=== PATIENT | female | born 1980 | race Two or more races ===

== ENCOUNTER 2019-02-10 12:00 | Outpatient (CLI) | payer BC | END 2019-02-10 23:59 | disposition home or self-care (01) | LOC: WOU 12:00 | PROVIDERS: ATTEND Surgery | DX: Z48.89 Encounter for other specified surgical aftercare (principal); N64.4 Mastodynia; Z80.3 Family history of malignant neoplasm of breast; L03.313 Cellulitis of chest wall | CPT/HCPCS: 99205; A6407; G0463 ==

== ENCOUNTER 2019-02-17 12:00 | Outpatient (CLI) | payer BC | END 2019-02-17 23:59 | disposition home or self-care (01) | LOC: WOU 12:00 | PROVIDERS: ATTEND Surgery | DX: Z48.817 Encounter for surgical aftercare following surgery on the skin and subcutaneous tissue (principal); N64.4 Mastodynia; L03.313 Cellulitis of chest wall; Z80.3 Family history of malignant neoplasm of breast | CPT/HCPCS: 99214; A6407; G0463 ==

== ENCOUNTER 2019-02-24 12:20 | Outpatient (CLI) | payer BC | END 2019-02-24 23:59 | disposition home or self-care (01) | LOC: WOU 12:20 | PROVIDERS: ATTEND Surgery | DX: Z48.817 Encounter for surgical aftercare following surgery on the skin and subcutaneous tissue (principal); N64.4 Mastodynia; L03.313 Cellulitis of chest wall; Z80.3 Family history of malignant neoplasm of breast; Z83.3 Family history of diabetes mellitus | CPT/HCPCS: 99214; A6407; G0463 ==

== ENCOUNTER 2019-03-10 12:00 | Outpatient (CLI) | payer BC | END 2019-03-10 23:59 | disposition home or self-care (01) | LOC: WOU 12:00 | PROVIDERS: ATTEND Surgery | PROC: BH41ZZZ Ultrasonography of Left Breast (ICD-10-PCS; principal; 2019-03-10) | PROC: 0H9U3ZX Drainage of Left Breast, Percutaneous Approach, Diagnostic (ICD-10-PCS; principal; 2019-03-10) | DX: N61.1 Abscess of the breast and nipple (principal); Z80.3 Family history of malignant neoplasm of breast; L03.313 Cellulitis of chest wall; N64.4 Mastodynia | CPT/HCPCS: 87070-TC ==

== ENCOUNTER 2019-03-17 12:05 | Outpatient (CLI) | payer BC | END 2019-03-17 23:59 | disposition home or self-care (01) | LOC: WOU 12:05 | PROVIDERS: ATTEND Surgery | DX: N61.1 Abscess of the breast and nipple (principal); L03.313 Cellulitis of chest wall; N64.4 Mastodynia; Z80.3 Family history of malignant neoplasm of breast | CPT/HCPCS: 11042; A6407; J3490 ==

== ENCOUNTER 2019-03-24 11:55 | Outpatient (CLI) | payer BC | END 2019-03-24 23:59 | disposition home or self-care (01) | LOC: WOU 11:55 | PROVIDERS: ATTEND Surgery | DX: Z48.817 Encounter for surgical aftercare following surgery on the skin and subcutaneous tissue (principal); L03.313 Cellulitis of chest wall; N61.1 Abscess of the breast and nipple; N64.4 Mastodynia; Z80.3 Family history of malignant neoplasm of breast | CPT/HCPCS: 99213; A6407; G0463 ==

== ENCOUNTER 2019-04-07 11:55 | Outpatient (CLI) | payer BC | END 2019-04-07 23:59 | disposition home or self-care (01) | LOC: WOU 11:55 | PROVIDERS: ATTEND Surgery | DX: L92.9 Granulomatous disorder of the skin and subcutaneous tissue, unspecified (principal); L03.313 Cellulitis of chest wall; N61.1 Abscess of the breast and nipple; N64.4 Mastodynia; Z80.3 Family history of malignant neoplasm of breast | CPT/HCPCS: G0463 ==

== ENCOUNTER 2019-04-14 11:40 | Outpatient (CLI) | payer BC | END 2019-04-14 23:59 | disposition home or self-care (01) | LOC: WOU 11:40 | PROVIDERS: ATTEND Surgery | DX: Z48.817 Encounter for surgical aftercare following surgery on the skin and subcutaneous tissue (principal); L92.9 Granulomatous disorder of the skin and subcutaneous tissue, unspecified; L03.313 Cellulitis of chest wall; N64.4 Mastodynia; Z80.3 Family history of malignant neoplasm of breast; N61.1 Abscess of the breast and nipple | CPT/HCPCS: G0463 ==

== ENCOUNTER 2019-04-21 12:20 | Outpatient (CLI) | payer BC | END 2019-04-21 23:59 | disposition home or self-care (01) | LOC: WOU 12:20 | PROVIDERS: ATTEND Surgery | DX: L92.9 Granulomatous disorder of the skin and subcutaneous tissue, unspecified (principal); L03.313 Cellulitis of chest wall; N61.1 Abscess of the breast and nipple; N64.4 Mastodynia; Z80.3 Family history of malignant neoplasm of breast | CPT/HCPCS: G0463 ==

== ENCOUNTER 2019-05-12 11:00 | Outpatient (CLI) | payer BC | END 2019-05-12 23:55 | disposition home or self-care (01) | LOC: WOU 11:00 | PROVIDERS: ATTEND Surgery | DX: L92.9 Granulomatous disorder of the skin and subcutaneous tissue, unspecified (principal); L03.313 Cellulitis of chest wall; N64.4 Mastodynia; N63.20 Unspecified lump in the left breast, unspecified quadrant; Z80.3 Family history of malignant neoplasm of breast; N61.1 Abscess of the breast and nipple; Z83.3 Family history of diabetes mellitus | CPT/HCPCS: G0463 ==

== ENCOUNTER → 2019-05-26 | Day surgery (SDC) | payer BC ==
[~2019-05-26] MED LIST: ANESTHESIA TRAY IN PYXIS 1 EA TRAY MC ONE; BACITRACIN 50000 UNITS/VIAL ONE; DESFLURANE 240 ML BOTTLE IH ONE; LIDOCAINE 1%-EPI 1:100,000 20 ML VIAL ONE; MIDAZOLAM HCL 2 MG/2ML VIAL ONE; SCOPOLAMINE HBR 1 EA PATCH.TD72 TD ONE; SEVOFLURANE 250 ML BOTTLE IH ONE
== END | disposition home or self-care (01) ==
LOC: DS 05:44
PROVIDERS: ATTEND Surgery
DX: N61.1 Abscess of the breast and nipple (principal); N63.0 Unspecified lump in unspecified breast
CPT/HCPCS: 19120; 84703; 88307; J0690; J1100; J1885; J2250; J2405; J2704; J3490 ×2

== ENCOUNTER 2019-06-09 12:00 | Outpatient (CLI) | payer BC | END 2019-06-09 23:59 | disposition home or self-care (01) | LOC: WOU 12:00 | PROVIDERS: ATTEND Surgery | DX: Z48.3 Aftercare following surgery for neoplasm (principal); L92.9 Granulomatous disorder of the skin and subcutaneous tissue, unspecified; Z80.3 Family history of malignant neoplasm of breast; L03.313 Cellulitis of chest wall | CPT/HCPCS: G0463 ==

== ENCOUNTER 2019-06-16 12:30 | Outpatient (CLI) | payer BC | END 2019-06-16 23:59 | disposition home or self-care (01) | LOC: WOU 12:30 | PROVIDERS: ATTEND Surgery | DX: Z48.89 Encounter for other specified surgical aftercare (principal); N63.20 Unspecified lump in the left breast, unspecified quadrant; Z80.3 Family history of malignant neoplasm of breast; N64.4 Mastodynia; L92.9 Granulomatous disorder of the skin and subcutaneous tissue, unspecified; Z83.3 Family history of diabetes mellitus | CPT/HCPCS: G0463 ==

== ENCOUNTER 2019-07-13 12:00 | Outpatient (CLI) | payer BC | END 2019-07-13 23:59 | disposition home or self-care (01) | LOC: WOU 12:00 | PROVIDERS: ATTEND Surgery | DX: Z09 Encounter for follow-up examination after completed treatment for conditions other than malignant neoplasm (principal); N64.4 Mastodynia; Z80.3 Family history of malignant neoplasm of breast; L92.9 Granulomatous disorder of the skin and subcutaneous tissue, unspecified | CPT/HCPCS: G0463 ==

== ENCOUNTER 2019-08-11 12:20 | Outpatient (CLI) | payer BC | END 2019-08-11 23:59 | disposition home or self-care (01) | LOC: WOU 12:20 | PROVIDERS: ATTEND Surgery | DX: Z48.817 Encounter for surgical aftercare following surgery on the skin and subcutaneous tissue (principal); L92.9 Granulomatous disorder of the skin and subcutaneous tissue, unspecified; N64.4 Mastodynia; Z80.3 Family history of malignant neoplasm of breast | CPT/HCPCS: G0463 ==

== ENCOUNTER → 2019-11-10 | Outpatient (CLI) | payer BC | END | disposition home or self-care (01) | LOC: WOU 11:15 | PROVIDERS: ATTEND Surgery | DX: Z09 Encounter for follow-up examination after completed treatment for conditions other than malignant neoplasm (principal); L92.9 Granulomatous disorder of the skin and subcutaneous tissue, unspecified; N64.4 Mastodynia; Z80.3 Family history of malignant neoplasm of breast | CPT/HCPCS: G0463 ==

== ENCOUNTER 2019-11-17 11:00 | Outpatient (CLI) | payer BC | END 2019-11-17 23:59 | disposition home or self-care (01) | LOC: WOU 11:00 | PROVIDERS: ATTEND Surgery | DX: Z09 Encounter for follow-up examination after completed treatment for conditions other than malignant neoplasm (principal); L92.9 Granulomatous disorder of the skin and subcutaneous tissue, unspecified; N64.4 Mastodynia; Z80.3 Family history of malignant neoplasm of breast | CPT/HCPCS: G0463; J7040 ==

== ENCOUNTER 2019-12-15 11:50 | Outpatient (CLI) | payer BC | END 2019-12-15 23:59 | disposition home or self-care (01) | LOC: WOU 11:50 | PROVIDERS: ATTEND Surgery | DX: Z09 Encounter for follow-up examination after completed treatment for conditions other than malignant neoplasm (principal); L92.9 Granulomatous disorder of the skin and subcutaneous tissue, unspecified; Z80.3 Family history of malignant neoplasm of breast | CPT/HCPCS: G0463 ==

== ENCOUNTER 2020-03-08 11:00 | Outpatient (CLI) | payer BC | END 2020-03-08 23:59 | disposition home or self-care (01) | DX: Z09 Encounter for follow-up examination after completed treatment for conditions other than malignant neoplasm (principal); Z87.2 Personal history of diseases of the skin and subcutaneous tissue; Z80.3 Family history of malignant neoplasm of breast ==

== ENCOUNTER 2020-06-14 11:30 | Outpatient (CLI) | payer BC | END 2020-06-14 23:59 | disposition home or self-care (01) | LOC: WOU 11:30 | PROVIDERS: ATTEND Surgery | DX: Z09 Encounter for follow-up examination after completed treatment for conditions other than malignant neoplasm (principal); Z87.2 Personal history of diseases of the skin and subcutaneous tissue; Z80.3 Family history of malignant neoplasm of breast | CPT/HCPCS: G0463 ==

== ENCOUNTER 2020-09-13 11:15 | Outpatient (CLI) | payer BC | END 2020-09-13 23:59 | disposition home or self-care (01) | LOC: WOU 11:15 | PROVIDERS: ATTEND Surgery | DX: L92.9 Granulomatous disorder of the skin and subcutaneous tissue, unspecified (principal); Z80.3 Family history of malignant neoplasm of breast | CPT/HCPCS: G0463 ==

== ENCOUNTER 2020-12-13 11:10 | Outpatient (CLI) | payer BC | END 2020-12-13 23:59 | disposition home or self-care (01) | LOC: WOU 11:10 | PROVIDERS: ATTEND Surgery | DX: N64.89 Other specified disorders of breast (principal); L92.9 Granulomatous disorder of the skin and subcutaneous tissue, unspecified; Z80.3 Family history of malignant neoplasm of breast | CPT/HCPCS: G0463 ==

== ENCOUNTER 2021-02-26 08:11 | Outpatient (CLI) | payer BC | END 2021-02-26 23:59 | disposition home or self-care (01) | LOC: WOU 08:11 | PROVIDERS: ATTEND Surgery | DX: L92.9 Granulomatous disorder of the skin and subcutaneous tissue, unspecified (principal); Z80.3 Family history of malignant neoplasm of breast; N64.4 Mastodynia | CPT/HCPCS: G0463 ==